=== PATIENT | female | born 1950 ===

== ENCOUNTER 2022-09-24 05:57 | Day surgery (SDC) | payer OTHER ==
[~2022-09-24 05:57] MED LIST: CLONAZEPAM1 MG PO; ELMIRON100 MG PO; PROLIA60 MG/1 ML SQ; TOPR PO; VITAMIN D PO
== END 2022-09-24 10:40 | disposition home or self-care (01) ==
LOC: CIR.AMB 05:57
PROVIDERS: ATTEND Surgery
DX: D17.1 Benign lipomatous neoplasm of skin and subcutaneous tissue of trunk (principal); R22.2 Localized swelling, mass and lump, trunk; Z11.59 Encounter for screening for other viral diseases; Z20.822 Contact with and (suspected) exposure to COVID-19; Z88.6 Allergy status to analgesic agent